=== PATIENT | female | born 1965 | race Caucasian/White ===

== ENCOUNTER 2019-09-03 18:50 | Outpatient (CLI) | payer MEDICAID | END 2019-09-03 18:51 | disposition home or self-care (01) | LOC: D.MAMMO 18:50 | PROVIDERS: ATTEND Emergency Medicine | DX: R92.8 Other abnormal and inconclusive findings on diagnostic imaging of breast (principal) ==

== ENCOUNTER 2021-02-05 06:33 | Day surgery (SDC) | payer MEDICAID ==
[~2021-02-05] VITALS: Ht 162.6 cm; Wt 74.4 kg
[~2021-02-05 06:33] MED LIST: ATIVAN1 MG PO; CELEXA40 MG PO; HYDROCODON-ACE1 EA10 PO; PROTONIX40 MG PO; TIROSINT150 MCG PO; VIT D 3 PO
[2021-02-05 07:03] LABS: ANION GAP 12.6 mmol/L (8-16); CALCIUM 9.1 mg/dL (8.5-10.1); CARBON DIOXIDE 27.4 mmol/L (21.0-32.0); CREATININE - SERUM 1.1 mg/dL (0.6-1.3)
[2021-02-05 07:15] LABS: BASOPHILS 0.3 % (0-2); EOSINOPHILS 10.4 % (0-7); HEMATOCRIT 41.5 % (36.0-48.0); HEMOGLOBIN 13.5 g/dL (12-16); LYMPHOCYTES 31.5 % (15-50); MCH 25.5 pg (26.0-34.0); MCHC 32.6 g/dL (31.0-37.0); MCV 78.3 fL (80.0-100.0); MEAN PLATELET VOLUME 7.2 fL (7.4-10.4); MONOCYTES 9.8 % (2-11); RBC 5.29 10x6/uL (4.00-5.40); RDW 13.6 % (11.5-14.5); WBC 6.5 10x3/uL (4.8-10.8)
[2021-02-05 07:26] LABS: PLATELET COUNT 436 10x3/uL (130-400)
[2021-02-05 07:48] VITALS: BP 126/71; Ht 162.6 cm; Wt 74.4 kg
[2021-02-05] MEDS ORDERED: HYDROCODON-ACE1 EA10 PO (10:40)
--- NOTE | 2021-02-05 11:02 | NUR ---
PT SLEEPIN COMFORTABLY. WHEN AWAKEN PT STATES SHE IS HURTING. EYES CLOSED. HOB ELEVATED. 2L NC. BP LOW. EDUCATED ON PAIN AND EFFECT ON BP WITH PAIN MEDS
--- NOTE | 2021-02-05 11:19 | NUR ---
PT RESTING COMFORTABLY. INSTRUCTED TO KEEP EYES OPEN IF MORE PAIN MEDS WANTED. SLEEPING AT THIST JOSHUA.
--- NOTE | 2021-02-05 11:35 | NUR ---
PT STATES PAIN DECREASING.
--- NOTE | 2021-02-05 12:49 | NUR ---
1240 VOIDED IN BATHROOM.
--- NOTE | 2021-02-05 14:24 | NUR ---
1400 IV REMOVED AND INSTRUCTIONS GIVEN 1420 PT D/C HOME
--- NOTE | 2021-02-06 11:56 | OP ---
PATIENT NAME: TRE RAINEY MEDICAL RECORD: [id number] :61 LOCATION:D.OPS ADMISSION DATE: SURGEON: MIKA JONES MD DATE OF OPERATION: 02/05/2021 PREOPERATIVE DIAGNOSES: 1. Ventral incisional hernia. 2. Hypothyroidism. 3. Tobacco dependence syndrome. POSTOPERATIVE DIAGNOSES: 1. Ventral incisional hernia. 2. Hypothyroidism. 3. Tobacco dependence syndrome. PROCEDURE: Ventral hernia repair with [address] mesh. SURGEON: Mika Jones MD DESCRIPTION OF PROCEDURE: The patient's abdomen was prepped and draped in sterile fashion. A midline incision was made just above the umbilicus. Electrocautery was used to dissect through the subcutaneous tissues and we encountered the hernia sac. This hernia sac was dissected from the surrounding fatty tissues. We then ligated the hernia sac at the fascial edges. At this point, we could measure out the hernia defect and it was approximately 4 cm. I cleared off the undersurface of the fascia across the anterior abdominal wall. I then opened up a few areas on the anterior fascia through the surrounding fatty tissue. An [address] mesh was inserted in an underlay fashion and sutured down on all 4 sides using multiple interrupted 0 Prolenes. The wound was then irrigated out with normal saline. The midline fascia was closed transversely with a running 0 Vicryl using bites of the mesh. The umbilicus was then tacked down using a single interrupted 3-0 Vicryl. The subcutaneous tissues were all reapproximated with multiple interrupted 3-0 Vicryl. A total of 10 mL of 0.25% Marcaine plain was infused into the surrounding tissues. The skin incision was then closed with running subcutaneous 5-0 Monocryl and dressed appropriately. COMPLICATIONS: None. CONDITION: Stable. ANESTHESIA: General endotracheal and local. BLOOD LOSS: Minimal. TRANSINT:[id number] Voice Confirmation ID: [id number] DOCUMENT ID: [id number] OPERATIVE REPORT [id number] TRE RAINEYMIKA MOBLEY MD at 1156 CC: SHELLY HANSEN [id number] DICTATION DATE: 02/05/21 1041 CHAIN TENDER: 02/05/21 1131 [facility] 02/05/21 [id number] [place] [address]
== END 2021-02-05 14:20 | disposition home or self-care (01) ==
LOC: D.OPS 06:33
PROVIDERS: Anesthesiology; ATTEND Surgery
DX: K43.9 Ventral hernia without obstruction or gangrene (principal); E03.9 Hypothyroidism, unspecified; F17.200 Nicotine dependence, unspecified, uncomplicated